=== PATIENT | male | born 1990 | race Caucasian/White ===

== ENCOUNTER 2021-11-19 14:05 | Emergency (ER) | payer OTHER ==
[~2021-11-19] VITALS: Ht 175.3 cm; Wt 81.8 kg
[~2021-11-19 14:05] MED LIST: FLUO10CA24 PO; NOCURR
[2021-11-19 14:40] LABS: COVID AG,FIA SOURCE NASAL SWAB
[2021-11-19 15:01] LABS: INFLUENZA TYPE A NEGATIVE FOR TYPE A (NEGATIVE); INFLUENZA TYPE B NEGATIVE FOR TYPE B (NEGATIVE)
[2021-11-19 15:34] VITALS: BP 128/65
== END 2021-11-19 16:27 | disposition home or self-care (01) ==
LOC: EMS 14:07
DX: U07.1 COVID-19 (principal); F32.A Depression, unspecified; F17.210 Nicotine dependence, cigarettes, uncomplicated
CPT/HCPCS: 87804; 93005; 99284; Z7502